=== PATIENT | male | born 1950 | race American Indian/Alaskan Native ===

== ENCOUNTER 2018-06-16 10:41 | Observation (INO) | payer MEDICARE ==
[2018-06-07 11:28] LABS: Basophils % (Auto) 0.7 % (0.0-1.8); Eosinophils # (Auto) 0.1 K/mm3 (0.0-0.4); Eosinophils % (Auto) 2.3 % (0.0-4.3); Hematocrit 39.9 % (35.5-45.6); Hemoglobin 13.3 gm/dl (11.8-15.2); Lymphocytes % (Auto) 41.9 % (13.4-35.0); Mean Corpuscular HGB Conc 33 % (32-34); Mean Corpuscular Hemoglobin 31 pg (28-32); Mean Corpuscular Volume 93 fl (84-94); Monocytes # (Auto) 0.4 K/mm3 (0.0-0.8); Monocytes % (Auto) 9.4 % (0.0-7.3); Platelet Count 286 K/mm3 (140-440); Red Blood Count 4.29 M/mm3 (3.65-5.03); Red Cell Distribution Width 13.3 % (13.2-15.2)
[2018-06-07 11:41] LABS: INR 0.92 (0.87-1.13)
[2018-06-07 11:42] LABS: Partial Thromboplastin Time 25.2 Sec. (24.2-36.6)
[2018-06-07 11:43] LABS: Alanine Aminotransferase 24 units/L (7-56); Albumin 4.1 g/dL (3.9-5); BUN/Creatinine Ratio 11; Blood Urea Nitrogen 10 mg/dL (9-20); Calcium 9.4 mg/dL (8.4-10.2); Hemolysis Index 23
[~2018-06-16 10:41] MED LIST: GARAMYCIN/NS 80 MG/100 ML 100 ML IV SCH; VANCOMYCIN/NS 1 GM/250 ML 1 GM/250 ML BAG IV SCH
[2018-06-16] MEDS ORDERED: DILAUDID IV PRN (11:18)
--- NOTE | 2018-06-16 11:59 | Anesthesia Day of Surgery ---
Anesthesia Day of Surgery - Day of Surgery Patient Examined: Yes Patient H&P Reviewed: Yes Patient is NPO: Yes
--- NOTE | 2018-06-16 11:59 | Anesthesia Consultation ---
Anesthesia Consult and Med Hx Date of service: 06/16/18 - Airway Anesthetic Teeth Evaluation: Good ROM Head & Neck: Adequate Mental/Hyoid Distance: Adequate Mallampati Class: Class III Intubation Access Assessment: Possibly Difficult - Pulmonary Exam CTA: Yes - Cardiac Exam Cardiac Exam: RRR - Pre-Operative Health Status ASA Pre-Surgery Classification: ASA3 Proposed Anesthetic Plan: General - Pulmonary Hx Smoking: Yes (4 PER DAY X 50 YRS) Hx Respiratory Symptoms: No COPD: Yes (no recent albuterol use) Hx Sleep Apnea: No (DONTA PRE SCREEN HIGH RISK) - Cardiovascular System Hx Hypertension: Yes Hx Heart Attack/AMI: No - Central Nervous System Hx Seizures: No CVA: No Hx Back Pain: Yes - Endocrine Hx Renal Disease: No Hx Liver Disease: No Hx Insulin Dependent Diabetes: No Hx Thyroid Disease: No - Other Systems Hx Cancer: Yes (prostate) - Additional Comments Anesthesia Medical History Comments: No hx anesthetic complications.
[2018-06-16] MEDS: LACTATED RINGERS 1,000 ML IV SCH ×2 (12:00→20:57)
[2018-06-16] MEDS ORDERED: VERSED IV NR (12:00)
[2018-06-16] MEDS ORDERED: SUBLIMAZE ONE ×2 (12:20→14:48)
[2018-06-16] MEDS ORDERED: DIPRIVAN 10 MG/ML IV ONE ×2 (12:21→13:45)
[2018-06-16] MEDS ORDERED: HYDROGEN PEROXIDE ONE ×2 (12:26→12:45)
[2018-06-16] MEDS ORDERED: GARAMYCIN ONE ×2 (12:27→13:09)
[2018-06-16] MEDS ORDERED: NEOSPORIN GU IR ONE ×2 (12:28→15:10)
[2018-06-16] MEDS ORDERED: VANCOMYCIN VIAL ONE (12:28)
[2018-06-16] MEDS ORDERED: NACL P/F VIAL (10 ML) 10 ML ONE (12:31)
[2018-06-16] MEDS ORDERED: XYLOCAINE MPF 2% ONE (13:25)
[2018-06-16] MEDS ORDERED: ZEMURON IV ONE (13:25)
[2018-06-16] MEDS ORDERED: NEO SYNEPHRINE/NS Syringe(OR USE) IV ONE (13:37)
[2018-06-16] MEDS ORDERED: DILAUDID ONE (14:18)
[2018-06-16] MEDS ORDERED: BLOXIVERZ ONE (14:30)
[2018-06-16] MEDS ORDERED: ROBINUL ONE (14:30)
[2018-06-16] MEDS ORDERED: ZOFRAN ONE (14:33)
[2018-06-16] MEDS ORDERED: MORPHINE IV PRN (14:46)
[2018-06-16] MEDS ORDERED: ZOFRAN IV PRN (14:46)
[2018-06-16] MEDS ORDERED: NARCAN 0.4 MG/1 ML IV PRN (14:46)
--- NOTE | 2018-06-16 14:46 | Short Stay Summary ---
Short Stay Documentation Date of service: 06/16/18 - History H&P: obtained from office - Allergies and Medications Current Medications: Allergies iodine Allergy (Verified 06/16/18 13:02) TIGHTNESS IN THROAT PT STATES EXTERNAL IODINE DOES NOT CAUSE PROBLEM FOR HIM ONLY INTERNAL shellfish derived Allergy (Verified 06/04/18 11:59) TIGHTNESS IN THROAT Home Medications Medication Instructions Recorded Confirmed Last Taken Type Albuterol Sulfate [Albuterol 0.63% 0.63 mg IH TID PRN 06/04/18 06/16/18 2 Months Ago History NEBS] ~04/15/18 Aspirin [Aspir-Low] 81 mg PO DAILY 06/04/18 06/16/18 1 Week Ago History ~06/09/18 Multivit-Min/FA/Lycopen/Lutein 1 each PO DAILY 06/04/18 06/16/18 06/16/18 06:00 History [Centrum Silver Tablet] Rosuvastatin (Nf) [Crestor] 20 mg PO QHS 06/04/18 06/16/18 06/15/18 History Lisinopril [Prinivil] 5 mg PO DAILY 06/16/18 06/16/18 06/16/18 06:00 History Active Medications Hydromorphone HCl (Dilaudid) 0.25 mg IV Q10MIN PRN PRN Reason: Pain, Moderate (4-6) Stop: 06/16/18 23:59 Gentamicin Sulfate/Sodium Chloride (Garamycin/Ns 80 Mg/100 Ml) 100 mls @ 200 mls/hr IV PREOP MEME Stop: 06/16/18 23:59 Vancomycin HCl (Vancomycin/Ns 1 Gm/250 Ml) 1 gm in 250 mls @ 166.667 mls/hr IV PREOP MEME Stop: 06/16/18 23:59 Last Admin: 06/16/18 12:37 Dose: 166.667 mls/hr Lactated Ringer's (Lactated Ringers) 1,000 mls @ 100 mls/hr IV DIRECT MEME Last Admin: 06/16/18 12:00 Dose: 100 mls/hr Midazolam HCl (Versed) 2 mg IV PREOP NR Stop: 06/16/18 23:59 Last Admin: 06/16/18 12:02 Dose: 2 mg - Brief post op/procedure progress note Date of procedure: 06/16/18 Pre-op diagnosis: impotence, malfx penile prosthesis Post-op diagnosis: same Procedure: replace ipp (CX 21CM + 2 CM RTE), MULCAHEY IRRIGATION, SCROTAPLASTY Anesthesia: KELVIN Surgeon: GLADYS WILKERSON Clinical Interviewer: DAVONTE VELAZQUEZ Estimated blood loss: minimal Pathology: list (RODS) Specimen disposition: to lab Condition: stable - Hospital course Hospital course: PT HAS PAIN MEDS & ABX, POST OP INFO ON CHART santizo & mummy wrap removed - Disposition Condition at discharge: Stable Disposition: [id number] TO HOME OR SELFCARE Short Stay Discharge Plan Additional Instructions: See handout with instructions for care from Dr. Wilkerson's office Follow up with: GLADYS WILKERSON MD [Staff Physician] - 7 Days PRIMARY CARE, [Primary Care Provider] - 7 Days
[2018-06-16] MEDS ORDERED: VERSED ONE ×2 (14:50→15:18)
[2018-06-16] MEDS ORDERED: BENADRYL ONE (14:50)
[2018-06-16] MEDS ORDERED: NON-FORMULARY (Albuterol Sulfate [Albuterol 0.63% Nebs] 0.63 MG) IH PRN (14:51)
[2018-06-16] MEDS ORDERED: GARAMYCIN/NS 80 MG/100 ML 100 ML IV SCH (15:00)
[2018-06-16] MEDS ORDERED: LACTATED RINGERS 1,000 ML IV SCH (15:00)
[2018-06-16] MEDS: DILAUDID IV PRN ×4 (15:03→15:20)
[2018-06-16] MEDS ORDERED: HALDOL IV PRN (15:07)
[2018-06-16] MEDS ORDERED: VANCOMYCIN VIAL IRRIGATION ONE (15:09)
[2018-06-16] MEDS ORDERED: NACL P/F VIAL (10 ML) INFILTRATI ONE (15:09)
[2018-06-16] MEDS ORDERED: HYDROGEN PEROXIDE IRRIGATION ONE (15:17)
[2018-06-16] MEDS ORDERED: VERSED IV ONE (15:17)
--- NOTE | 2018-06-16 15:23 | Post Anesthesia Evaluation ---
- Post Anesthesia Evaluation Patient Participated: Yes Airway Patent: Yes Stable Respiratory Function: Yes Nausea/Vomiting: No Temp > 96.8F: Yes Pain Manageable: Yes Adequeate Hydration: Yes Anesthesia Complications: No
[2018-06-16] MEDS ORDERED: LACTATED RINGERS 1,000 ML ONE (15:29)
--- NOTE | 2018-06-16 18:53 | Operative Report ---
PREOPERATIVE DIAGNOSES: Erectile dysfunction, status post inflatable penile prosthesis with infection, salvage malleable prosthesis now with pain. POSTOPERATIVE DIAGNOSES: Erectile dysfunction, status post inflatable penile prosthesis with infection, salvage malleable prosthesis now with pain. Redundant scrotal skin. PROCEDURE: Removal of penile prosthesis, insertion of inflatable penile prosthesis (CX 21 cm +2 cm rear tip extenders) scrotoplasty. SURGEON: Dick Wilkerson MD ANESTHESIA: General. ESTIMATED BLOOD LOSS: Minimal. FLUIDS: Crystalloid. COMPLICATIONS: No complications. INDICATIONS: This patient is a 68-year-old gentleman known to my service with a history of prostate cancer, who was treated in 2005. The patient then had done well and also underwent an inflatable penile prosthesis, which was performed by me 10+ years ago. The patient moved to [place] with penile prosthesis malfunction. They replaced and it got infected and he ended up with semirigid rods in the penis; however, he continues to have pain in the penis and presents now for revision, removal and replacement. Risks, benefits, and complications were explained. DESCRIPTION OF PROCEDURE: The patient was taken to the operative suite, placed in a supine position. After adequate general anesthesia, prepped and draped in a sterile fashion. Betancur catheter was placed on the operative field. Scrotal incision was made. Sharp dissection was taken down to the corporal bodies, obvious malleable cylinders were in the shaft. 2-0 Vicryl stay stitch was placed, corporotomies were made. The malleable retractors of the malleable rods were removed. No signs of infection. Anaerobic and aerobic cultures were taken from the right side. Similar procedure was performed on the left and again cultures were taken. Measurements revealed a total of 23 cm; therefore, a 21 cm CX AMS device was placed with 2 cm rear tip extenders. [place] was prepped, 100 mL reservoir was prepped and placed into the retropubic space via the right external ring, minimal back pressure. The cylinders were placed in the corporal bodies with the aid of a Alexander needle. Corporotomies were closed with 2-0 Vicryl in a running fashion. Insufflation of the device, adequate results. The reservoir was connected to the pump with the quick connection system. Insufflation and deflation were excellent. Mulcahey antibiotic irrigation was performed throughout the procedure. The pump was placed in the dependent portion of the scrotum. 2-0 pursestring suture was used to secure the dependent portion of the scrotum. [place] layer was closed with 2-0 Vicryl in a running fashion. Redundant scrotal skin was trimmed. The skin was closed with 2-0 Monocryl in interrupted fashion. A strip of Xeroform was placed on the incision. Mummy wrap was placed. The patient tolerated the procedure well and was extubated and taken to recovery room in stable condition and will be observed overnight. JOB# [id number] CHERIE/DOT
[2018-06-16] MEDS ORDERED: PROVENTIL IH PRN (20:00)
[2018-06-16] MEDS: NORCO 5/325 PO PRN (20:54)
[2018-06-16] MEDS ORDERED: AMBIEN PO PRN (20:58)
[2018-06-16] MEDS ORDERED: NON-FORMULARY (Rosuvastatin (Nf) 20 MG) PO SCH (22:00)
[2018-06-17] MEDS ORDERED: GARAMYCIN/NS 80 MG/100 ML 100 ML IV SCH
[2018-06-17] MEDS: NORCO 5/325 PO PRN ×2 (04:06→10:53)
--- NOTE | 2018-06-17 07:06 | Consultation ---
History of Present Illness - Reason for Consult Consult date: 06/16/18 Medical management Requesting physician: GLADYS LEWIS - History of Present Illness S/p IPP-patient doing well post op Past History Past Medical History: COPD, hypertension, hyperlipidemia Past Surgical History: Other (ipp) Social history: no significant social history, lives with family, full code Family history: hypertension Medications and Allergies Allergies Allergy/AdvReac Type Severity Reaction Status Date / Time iodine Allergy TIGHTNESS Verified 06/16/18 13:02 IN THROAT shellfish derived Allergy TIGHTNESS Verified 06/04/18 11:59 IN THROAT Home Medications Medication Instructions Recorded Confirmed Last Taken Type Albuterol Sulfate [Albuterol 0.63% 0.63 mg IH TID PRN 06/04/18 06/16/18 2 Months Ago History NEBS] ~04/15/18 Aspirin [Aspir-Low] 81 mg PO DAILY 06/04/18 06/16/18 1 Week Ago History ~06/09/18 Multivit-Min/FA/Lycopen/Lutein 1 each PO DAILY 06/04/18 06/16/18 06/16/18 06:00 History [Centrum Silver Tablet] Rosuvastatin (Nf) [Crestor] 20 mg PO QHS 06/04/18 06/16/18 06/15/18 History Lisinopril [Prinivil] 5 mg PO DAILY 06/16/18 06/16/18 06/16/18 06:00 History Active Meds: Active Medications Acetaminophen/Hydrocodone Bitart ([place] 5/325) 2 each PO Q6H PRN PRN Reason: Pain, Moderate (4-6) Last Admin: 06/17/18 04:06 Dose: 2 each Albuterol (Proventil) 2.5 mg IH TIDRT PRN PRN Reason: Shortness Of Breath Atorvastatin Calcium (Lipitor) 40 mg PO QHS MEME Last Admin: 06/16/18 21:19 Dose: 40 mg Haloperidol Lactate (Haldol) 2.5 mg IV Q20M PRN PRN Reason: Agitation Last Admin: 06/16/18 15:38 Dose: 2.5 mg Lactated Ringer's (Lactated Ringers) 1,000 mls @ 100 mls/hr IV DIRECT MEME Last Admin: 06/16/18 20:57 Dose: 100 mls/hr Lactated Ringer's (Lactated Ringers) 1,000 mls @ 100 mls/hr IV DIRECT MEME Gentamicin Sulfate/Sodium Chloride (Garamycin/Ns 80 Mg/100 Ml) 100 mls @ 200 mls/hr IV Q8H MEME; Protocol Stop: 06/17/18 08:29 Last Admin: 06/17/18 00:03 Dose: 200 mls/hr Lisinopril (Zestril) 5 mg PO DAILY [facility] Morphine Sulfate (Morphine) 4 mg IV Q4H PRN PRN Reason: Pain , Severe (7-10) Last Admin: 06/16/18 18:35 Dose: 4 mg Multivitamins/Minerals (Theragran-M Tab) 1 each PO QDAY MEME Naloxone HCl (Narcan 0.4 Mg/1 Ml) 0.1 mg IV Q2MIN PRN PRN Reason: Res Rate </= 8 or 02 SAT < 92% Ondansetron HCl (Zofran) 4 mg IV Q8H PRN PRN Reason: N/V unrelieved by Reglan Zolpidem Tartrate (Ambien) 5 mg PO QHS PRN PRN Reason: Sleep Last Admin: 06/16/18 21:19 Dose: 5 mg Review of Systems All systems: negative Exam - Constitutional Vitals: Temp Pulse Resp BP Pulse Ox 98.4 F 80 18 130/72 98 06/17/18 03:58 06/17/18 03:58 06/17/18 04:06 06/17/18 03:58 06/17/18 03:58 General appearance: Present: no acute distress, well-nourished - EENT Eyes: Present: PERRL ENT: hearing intact, clear oral mucosa - Neck Neck: Present: supple, normal ROM - Respiratory Respiratory effort: normal Respiratory: bilateral: CTA - Cardiovascular Heart rate: 76 Rhythm: regular Heart Sounds: Present: S1 & S2. Absent: rub, click - Extremities Extremities: no ischemia, pulses intact, pulses symmetrical, No edema Peripheral Pulses: within normal limits - Abdominal General gastrointestinal: Present: soft, non-tender, non-distended, normal bowel sounds Male genitourinary: Present: normal - Rectal Rectal Exam: deferred - Integumentary Integumentary: Present: clear, warm, dry - Musculoskeletal Musculoskeletal: gait normal, strength equal bilaterally - Psychiatric Psychiatric: appropriate mood/affect, intact judgment & insight - Neurologic Neurologic: CNII-XII intact, moves all extremities - Allied Health Allied health notes reviewed: nursing, case management Results - Labs CBC & Chem 7: 06/07/18 10:53 06/07/18 10:53 Assessment and Plan - Patient Problems (1) HTN (hypertension) Current Visit: Yes Status: Chronic Qualifiers: Hypertension type: essential hypertension Qualified Code(s): I10 - Essential (primary) hypertension Plan to address problem: Cont Antihypertensives (2) HLD (hyperlipidemia) Current Visit: Yes Status: Chronic Qualifiers: Hyperlipidemia type: mixed hyperlipidemia Qualified Code(s): E78.2 - Mixed hyperlipidemia Plan to address problem: COnt statins (3) Asthma Current Visit: Yes Status: Inactive Qualifiers: Asthma severity: mild Asthma complication type: unspecified Plan to address problem: Cont Albuterol PRN (4) Status post surgery Current Visit: Yes Status: Acute Plan to address problem: Had IPP Probable discharge tomorrow (5) DVT prophylaxis Current Visit: Yes Status: Acute Plan to address problem: ON SCD's
[2018-06-17] MEDS: LACTATED RINGERS 1,000 ML IV SCH (07:11)
--- NOTE | 2018-06-17 09:32 | Discharge Summary ---
Short Stay Discharge Plan Activity: other (no straining ) Weight Bearing Status: Full Weight Bearing Diet: low fat, low salt Wound: open to air Special Instructions: other (no sex .. no baths ) Follow up with: PRIMARY CAREMD [Primary Care Provider] - 7 Days GLADYS LEWIS MD [Staff Physician] - 7 Days
[2018-06-17] MEDS ORDERED: NON-FORMULARY (Multivit-Min/Fa/Lycopen/Lutein [Centrum Silver Tablet] 1 EACH) PO SCH (10:00)
[2018-06-17] MEDS ORDERED: ZESTRIL PO SCH (10:00)
[2018-06-17] MEDS ORDERED: THERAGRAN-M Tab PO SCH (10:00)
[2018-06-17 11:55] VITALS: BP 114/70
== END 2018-06-17 13:30 | disposition home or self-care (01) ==
LOC: OR 10:41 → 3B-SURG 14:46
PROVIDERS: ADMIT Urology; ATTEND Urology
DX: N52.01 Erectile dysfunction due to arterial insufficiency (principal); T83.490A Other mechanical complication of implanted penile prosthesis, initial encounter; N48.89 Other specified disorders of penis; I10 Essential (primary) hypertension; E78.5 Hyperlipidemia, unspecified; J44.9 Chronic obstructive pulmonary disease, unspecified; R79.1 Abnormal coagulation profile; F17.200 Nicotine dependence, unspecified, uncomplicated; Z85.46 Personal history of malignant neoplasm of prostate
CPT/HCPCS: 36415; 54410; 80053; 85025; 85610; 85730; 87075; 87116; 88300; 88302; 96365; 96367; 96375; A9270; C1813; G0378; J1170; J1200; J1580; J1630; J2250; J2270; J2370; J2405; J2704; J2710; J3010; J3370; J7120; 88305